=== PATIENT | male | born 1990 ===

== ENCOUNTER 2023-10-24 22:42 | Emergency (ER) | payer SELFPAY ==
[~2023-10-24] VITALS: Ht 180.3 cm; Wt 90.9 kg
[2023-10-24 23:09] VITALS: BP 125/85; PULSE 117; RESP 20; TEMP 97.7
[2023-10-24] MEDS ORDERED: OLAN10TA74 PO (23:14)
[2023-10-24] MEDS ORDERED: BUSP15 PO (23:14)
[2023-10-24] MEDS ORDERED: BUPR1TAB46 SL (23:14)
[2023-10-24] MEDS ORDERED: MIRT-89 PO (23:14)
[2023-10-24 23:32] LABS: COVID AG,FIA SOURCE NASAL SWAB
[2023-10-24 23:43] LABS: SARS-COV2 (COVID) ANTIGEN,FIA Negative (Negative)
== END 2023-10-25 00:51 | disposition left against medical advice (07) ==
LOC: EMS 22:42
DX: R06.02 Shortness of breath (principal); R09.81 Nasal congestion; Z53.21 Procedure and treatment not carried out due to patient leaving prior to being seen by health care provider; Z20.822 Contact with and (suspected) exposure to COVID-19
CPT/HCPCS: 93005